=== PATIENT | female | born 1960 | race Caucasian/White ===

== ENCOUNTER 2016-12-13 16:00 | Emergency (ER) | payer BC ==
[~2016-12-13] VITALS: Ht 165.1 cm; Wt 65.1 kg
[~2016-12-13 16:00] MED LIST: CARAFATE100 MG/ML PO; IMODIUM MS REL1 EACH PO; LORAZEPAM0.5 MG PO; OMEPRAZOLE40 M1 PO; RANITIDINE HCL150 M1 PO; ZOFRAN4 MG PO
[2016-12-13 17:26] LABS: CHLORIDE 102 mEq/L (99-109); POTASSIUM 3.6 mEq/L (3.7-5.4); SODIUM 136 mEq/L (136-147)
[2016-12-13 17:28] LABS: GLUCOSE 99 mg/dL (70-99)
[2016-12-13 17:31] LABS: ALKALINE PHOSPHATASE 74 IU/L (3-129); ANION GAP 12 MEQ/L (2-14); TOTAL BILIRUBIN 0.4 mg/dL (0.0-1.0)
[2016-12-13 17:32] LABS: GFR ESTIMATE (CALCULATED) 55 mL/min/
[2016-12-13 17:33] LABS: UREA NITROGEN (BUN) 13 mg/dL (9-23)
[2016-12-13 17:39] LABS: TROP-I INTERPRETATION NEGATIVE; TROPONIN-I < 0.01 ng/mL (0.0-0.30)
[2016-12-13 19:19] LABS: INFLUENZA A VIRAL ANTIGEN NEGATIVE; INFLUENZA B VIRAL ANTIGEN POSITIVE
[2016-12-13 19:20] LABS: EOSINOPHIL (%) 0.5 % (0-5); HEMATOCRIT 42.6 % (36.0-46.0); IMMATURE GRANULOCYTE (%) 0.2 % (0.0-0.7); INSTRUMENT ABS NEUTROPHIL CT 2.1 K/uL; LYMPHOCYTE COUNT 1.1 K/uL (1.0-2.8); MCH 29.5 PG (29.0-34.0); MCHC 33.1 G/DL (30.0-36.0); MCV 89.1 FL (83-99); MONOCYTE COUNT 0.7 K/uL (0-0.8); NEUTROPHIL (%) 52.9 % (45-76); NEUTROPHIL COUNT 2.1 K/uL (1.8-6.4); RBC DIS.WIDTH-CV 13.2 % (11.8-14.6); RBC DIS.WIDTH-SD 43.5 % (39-53); RED BLOOD COUNT 4.78 M/uL (3.80-5.20)
[2016-12-13 20:07] LABS: PLAT.SUFFICIENCY ADEQUATE; PLATELET CLUMPS PRESENT - PLATELET COUNT APPEARS ADQ.; PLATELET COUNT UNABLE TO REPORT K/uL (156-360)
[2016-12-13] MEDS ORDERED: PROVENTIL HFA6.7 GM IH (20:50)
[2016-12-13 21:13] VITALS: BP 111/66
== END 2016-12-13 21:22 | disposition home or self-care (01) ==
LOC: EME → EDBD 16:00 → EME 16:00
PROVIDERS: Emergency Medicine
DX: J10.1 Influenza due to other identified influenza virus with other respiratory manifestations (principal); R51 Headache
CPT/HCPCS: 71275; 80053; 83880; 84484; 85025; 85025 91; 87502; 93005; 94640; 99281; 99285; J7030